=== PATIENT | male | born 1960 | race Caucasian/White ===

== ENCOUNTER 2019-04-06 20:02 | Emergency (ER) | payer OTHER ==
[2019-04-06] MEDS: DIPHTH/TET/ACEL PERTUSS (ADULT) 0.5 ML VIAL IM* (23:01)
[2019-04-06] MEDS: HYDROCODONE/APAP (5/325) TAB PO (23:02)
[2019-04-07] MEDS: AMOXICILLIN/CLAV 875 MG TAB PO (00:04)
== END 2019-04-07 00:15 | disposition home or self-care (01) ==
LOC: FTE 04-07 00:15
DX: S51.851A Open bite of right forearm, initial encounter (principal); W53.11XA Bitten by rat, initial encounter; Y92.009 Unspecified place in unspecified non-institutional (private) residence as the place of occurrence of the external cause; Z23 Encounter for immunization
CPT/HCPCS: 73090; 90471; 90715; 99283-25